=== PATIENT | male | born 1945 | race Two or more races ===

== ENCOUNTER → 2017-05-08 | Outpatient (CLI) | payer OTHER ==
--- NOTE | 2017-05-08 10:08 | ST Modified Barium Swallow ---
Recommendation - Recommendations Recommendations: No diet modifications recommended. Patient advised to alternate bites and sips during meals, and to use hard/effortful swallows to clear residue. Discussed swallowing therapy with patient, advised patient to persue should he feel his swallowing is worsening. 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 ST Modified Barium Swallow - General Date: 05/08/17 Reason for Referral: globus sensation - History History obtained from: Patient -: Medical - Patient reports gradual onset of dysphagia symptoms. States that he feels he needs to swallow several times to get foods to go down, notices this more so on solids. Difficulties are inconsistent, but the patient feels they are getting worse. No recent pneumonia, and no coughing or choking at meals reported. 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 Medications: Patient reports taking medications for diabetes. Allergies: No reported allergies - Functional Status Prior Functional Status: INDEPENDENT: feeding - WNL - Subjective Patient/caregiver goal(s): safe swallow Cognitive-Linguistic Function: WNL Speech Intelligibility: WNL Current Nutritional Means: PO Current PO diet: Regular Current symptoms: c/o Globus sensation Pain: Patient reports, 0/5 - Objective Assessment: Upright, Left Lateral - Food Trials Used Food trials used: Thin liquids, Pureed, Soft solids, Regular The patient: Was Able to Self Feed - Oral-Motor Skills Dentition: Partial Laryngeal Function: Volitional Cough, Volitional Swallow, clear voicing - Assessment Oral prep: Normal Labial closure: Adequate Leakage: None Mastication: Adequate Lingual Movement: Normal - Pharyngeal Stage Initiation of Pharyngeal Stage Reflex: Normal Decreased laryngeal elevation: No Reduced Velopharyngeal Closure: no Pre-swallow pooling in valleculae: Mild Pre-Swallow pooling in pyriforms: None Reduced Thyro-Hyoid approximation: No Reduced epiglottic excursion: No Multiple Swallows with: Cleared w/ Liquid Assist Post-swallow residulas vallecular: Mild - on regular texture, cleared with second swallow Post-Swallow residuals in pyriforms: Moderate - Mild for liquid trials, moderate for solids. Required multiple swallows to clear, liquid wash helped clear more quickly. - Fall Risk Assessment Medications/Conditions that increase fall risks include: Antidepressants, sedatives, anti-arrhythmic, diuretic, benzodiazipenes, neuroleptics. BP regulation problems, cardiac problems, balance or gait deficits, neurological problems. Is patient considered at risk for falls: yes Fall Risk Actions Taken: No action needed - Behavioral Observations During evaluation process patient: was pleasant, was cooperative, able to answer questions, provided medical history Mental Status: Alert & Oriented X3 - Treatment / Educational Needs: Treatment/Education Needs: Treatment consisted of patient education on the role of the Speech Pathologist. Patient's plan of care and golas were communicated as well as scheduling and attendance policies. Recommendations for initial home program were shared. Patient demonstrated understanding and verbalized agreement. - Impression/Summary Laryngeal Penetration: No Tracheal Aspiration: no Effective compensatory strategies: hard swallow Ineffective compensatory strategies: throat clear & reswallow Patient presents with: Pharyngeal stage dysph., Mild-Moderate Risk of Aspiration: Minimal Risk of nutritional compromise: None Evaluation and Findings: The patient presents with generally good swallow function. Residue present in pyriform sinus with all trial consistencies, able to clear with multiple swallows or liquid wash. Level of residue does not place patient at significantly higher risk of aspiration. Discussed swallowing therapy wtih patient, stated that the patient may persue this should he feel it would benefit him. - Recommendations Solid diet recommendations: Regular Liquid Diet Modification: Thin Pt/Family education and followup with MD: Yes Recommended techniques: Dry Swallow After Bite, Alternate Bites/Sips Information, Precautions and Recommendations: Patient (Written), Patient (Verbal ) - Time Total Time: 30 - Plan of Care Patient to follow-up with referring physician: Yes Strategies to optimize patient understanding include:: ongoing assessment of educational needs, implementation of educational strategies, and re-education. - - -: Thank you for the opportunity to work with this patient and his/her family. Should you have any questions about this patient's plan or progress, I can be reached at [phone]. Charge G Code? - - -: No
--- NOTE | 2017-05-08 18:26 | RADIOLOGY REPORT (SQ) ---
EXAM DESCRIPTION: TRAVIS SWALLOW COMPLETED DATE/TIME: 05/08/2017 9:05 am REASON FOR STUDY: INCLUSION BODY MYOSITIS/DYSPHAGIA R13.10 DYSPHAGIA, UNSPECIFIED COMPARISON: None. TECHNIQUE: Videofluoroscopic swallowing examination was performed in conjunction with speech patholo gy. Videofluoroscopic imaging was obtained and reviewed and these are the findings: RADIATION DOSE: Fluoro time 1.28 minutes 1 images saved to PACS. LIMITATIONS: None FINDINGS: The patient was brought into the fluoro room and placed upright on a modified barium swall ow chair. The patient was then given multiple consistencies mixed with barium to swallow under live fluoroscopic video guidance. According to the Speech Pathologist there was no penetration or aspirat ion. There is minimal persistent hang up of barium seen in the piriform sinuses which required subse quent swallows to clear. Please refer to the speech pathology report for further details and recommen dations. IMPRESSION: NO EVIDENCE OF PENETRATION OR ASPIRATIONPLEASE SEE SPEECH PATHOLOGIST REPORT FOR OTHER F INDINGS AND RECOMMENDATIONS. COMMENT: None Quality ID [id number]: Final reports for procedures using fluoroscopy that document radiation exposure danielle mickey, or exposure time and number of fluorographic images (if radiation exposure indices are not avail able) TECHNICAL DOCUMENTATION: JOB ID: [id number] [employer]- All Rights Reserved
== END ==
LOC: RAD 08:17
PROVIDERS: ATTEND Physician Assistant
DX: R13.10 Dysphagia, unspecified (principal); G72.41 Inclusion body myositis [IBM]
CPT/HCPCS: 74230